=== PATIENT | male | born 1960 | race Caucasian/White ===

== ENCOUNTER 2023-11-16 08:10 | Day surgery (SDC) | payer MEDICAID ==
[~2023-11-16] VITALS: Ht 170.2 cm; Wt 115.0 kg
[2023-11-16] VITALS (14 sets, daily range): BP systolic 136–157; BP diastolic 66–103; PULSE 61–70; RESP 16–18; TEMP 98.1; O2SAT 91–96
[2023-11-16] MEDS ORDERED: normal saline 1000ml 1,000 ML IV SCH (08:40)
[2023-11-16] MEDS ORDERED: AMLO-511 PO (08:43)
[2023-11-16] MEDS ORDERED: ASCO500T24 PO (08:43)
[2023-11-16] MEDS ORDERED: ERGO500041 PO (08:43)
[2023-11-16] MEDS ORDERED: PROP10TA10 PO (08:43)
[2023-11-16] MEDS ORDERED: CYAN250010 PO (08:43)
[2023-11-16] MEDS ORDERED: LEVO100T9 PO (08:43)
[2023-11-16 09:06] LABS: BASOPHILS # (AUTO) 0.1 X10'3 (0-0.2); EOSINOPHILS # (AUTO) 0.3 X10'3 (0-0.9); EOSINOPHILS % (AUTO) 3.4 % (0-6); HEMATOCRIT 41.6 % (42.0-52.0); HEMOGLOBIN 14.3 g/dl (14.0-17.9); LYMPHOCYTES # (AUTO) 1.7 X10'3 (1.1-4.8); LYMPHOCYTES % (AUTO) 22.4 % (21-51); MEAN CORPUSCULAR HEMOGLOBIN 29.9 PG (27.0-31.0); MEAN CORPUSCULAR HGB CONC 34.2 g/dL (33.0-36.5); MEAN CORPUSCULAR VOLUME 87.4 FL (78-98); MEAN PLATELET VOLUME 8.8 FL (7.4-10.4); MONOCYTES # (AUTO) 0.5 X10'3 (0-0.9); MONOCYTES % (AUTO) 6.7 % (2-12); NEUTROPHILS # (AUTO) 5.1 X10'3 (1.8-7.7); NEUTROPHILS % (AUTO) 66.5 % (42-75); PLATELET COUNT 179 X10'3 (140-440); RED BLOOD COUNT 4.76 X10'6 (4.70-6.10); WHITE BLOOD COUNT 7.7 X10'3 (4.5-11.0)
[2023-11-16 09:13] LABS: APTT 26 SECONDS (22-32); PROTHROMBIN TIME 10.6 SECONDS (9.0-12.0)
[2023-11-16] MEDS ORDERED: LIDOcaine 1% (10mg/ml) 2ml vial ONE (10:11)
[2023-11-16] MEDS ORDERED: midazolam 1 mg/ML 2ml injection ONE (10:35)
[2023-11-16] MEDS ORDERED: fentaNYL/PF 50MCG/1 ML 2ML syringe ONE (10:35)
== END 2023-11-16 14:05 | disposition home or self-care (01) ==
LOC: SSTAY O 08:10
PROVIDERS: ATTEND Radiology Vascular & Interventional Radiology
DX: R91.1 Solitary pulmonary nodule (principal); J84.10 Pulmonary fibrosis, unspecified; J98.4 Other disorders of lung; I10 Essential (primary) hypertension; E03.9 Hypothyroidism, unspecified; J44.9 Chronic obstructive pulmonary disease, unspecified; M19.90 Unspecified osteoarthritis, unspecified site; K21.9 Gastro-esophageal reflux disease without esophagitis; E11.9 Type 2 diabetes mellitus without complications; K74.60 Unspecified cirrhosis of liver; Z86.19 Personal history of other infectious and parasitic diseases; Z90.49 Acquired absence of other specified parts of digestive tract; Z98.890 Other specified postprocedural states; Z79.899 Other long term (current) drug therapy; Z87.891 Personal history of nicotine dependence; Z82.61 Family history of arthritis; Z82.49 Family history of ischemic heart disease and other diseases of the circulatory system
CPT/HCPCS: 32408; 36415; 71045; 85025; 85610; 85730; J3490; J7030; 77012; A4615; J2250; J3010